=== PATIENT | male | born 1995 | race Caucasian/White ===

== ENCOUNTER 2017-11-04 08:29 | Emergency (ER) | payer BC ==
[2017-11-04] MEDS ORDERED: HYDROmorphone PF 2 MG/ML VIAL ONE (08:43)
[2017-11-04] MEDS ORDERED: IV NORMAL SALINE 1,000ML 1,000 ML IV SCH (08:45)
[2017-11-04] MEDS ORDERED: HYDROmorphone PF 2 MG/ML VIAL IV ONE ×2 (08:45→09:30)
[2017-11-04 09:11] LABS: BASO % 0 % (0-3); EOS # 0.1 x10^3/uL (0.0-0.7); EOS % 1 % (0-3); HEMATOCRIT 41.1 % (39.0-53.0); HEMOGLOBIN 14.5 g/dL (13.0-17.5); LYMPH # 2.1 x10^3/uL (1.0-4.8); LYMPH % 17 % (24-48); MEAN CORPUSCULAR HEMOGLOBIN 31 pg (25-35); MEAN CORPUSCULAR HGB CONC 35 g/dL (31-37); MEAN CORPUSCULAR VOLUME 88 fL (79-100); MONO # 0.4 x10^3/uL (0.0-1.1); MONO % 3 % (0-9); NEUT # 10.1 x10^3uL (1.8-7.7); NEUT % 80 % (31-73); PLATELET COUNT 286 x10^3/uL (140-400); RED BLOOD COUNT 4.68 x10^6/uL (4.30-5.70); RED CELL DISTRIBUTION WIDTH 13.5 % (11.5-14.5); WHITE BLOOD COUNT 12.7 x10^3/uL (4.0-11.0)
[2017-11-04 09:18] LABS: ALBUMIN 4.3 g/dL (3.4-5.0); ALBUMIN/GLOBULIN RATIO 1.4 (1.0-1.7); CALCIUM 9.2 mg/dL (8.5-10.1); GFR 94.3; POTASSIUM 3.7 mmol/L (3.5-5.1); TOTAL BILIRUBIN 0.7 mg/dL (0.2-1.0); TOTAL PROTEIN 7.4 g/dL (6.4-8.2)
[2017-11-04] MEDS ORDERED: ONDANSETRON PF 4 MG/2 ML VIAL. ONE (09:29)
[2017-11-04] MEDS ORDERED: ONDANSETRON PF 4 MG/2 ML VIAL. IV ONE (09:30)
--- NOTE | 2017-11-04 09:48 | PHYS DOC ---
Past History Past Medical History: Kidney Stones Past Surgical History: Tonsillectomy, Other Alcohol Use: Occasionally Drug Use: Marijuana Adult General Chief Complaint Chief Complaint: NAUSEA/VOMITING/DIARRHEA HPI HPI Patient is a 22 year old F who presents with abdominal pain associated with nausea/vomiting that started this morning. He states that the pain is constant with wave like fluctuating intensity. His pain is sharp in the right upper quadrant. He feels that this is similar to previous episodes of gallstones. He had his gallbladder removed 2 weeks ago. He was seen by his surgeon yesterday and was cleared for no further follow-ups as related to his gallbladder surgery. He does have a history of kidney stones. He states that his kidney stone pain is usually in his back and not the front and therefore he feels this pain is different. He denies any other associated problems and any other exacerbating or alleviating factors. Review of Systems Review of Systems Constitutional: Denies fever or chills [] Eyes: Denies change in visual acuity, redness, or eye pain [] HENT: Denies nasal congestion or sore throat [] Respiratory: Denies cough or shortness of breath [] Cardiovascular: No additional information not addressed in HPI [] GI: Negative except history of present illness : Denies dysuria or hematuria [] Musculoskeletal: Denies back pain or joint pain [] Integument: Denies rash or skin lesions [] Neurologic: Denies headache, focal weakness or sensory changes [] Endocrine: Denies polyuria or polydipsia [] All other systems were reviewed and found to be within normal limits, except as documented in this note. Family History Family History No pertinent family medical history was reported Current Medications Current Medications Current Medications Medications (Trade) Dose Ordered Sig/Ha Start Time Stop Time Status Last Admin Dose Admin Hydromorphone HCl (Dilaudid) 0.5 mg 1X ONCE 11/04/17 09:30 11/04/17 09:31 DC 11/04/17 09:24 0.5 MG Ondansetron HCl (Zofran) 4 mg 1X ONCE 11/04/17 09:30 11/04/17 09:34 DC 11/04/17 09:30 4 MG Sodium Chloride 1,000 ml @ 1,000 mls/hr Q1H 11/04/17 08:45 11/04/17 09:44 DC 11/04/17 08:45 1,000 MLS/HR Allergies Allergies Allergies Coded Allergies Type Severity Reaction Last Updated Verified No Known Drug Allergies 11/04/17 No Physical Exam Physical Exam Constitutional: Well developed, well nourished, no acute distress, non-toxic appearance. [] HENT: Normocephalic, atraumatic, Eyes: EOMI, conjunctiva normal, no discharge. [] Neck: Normal range of motion, no tenderness, supple, no stridor. [] Cardiovascular:Heart rate regular rhythm, Lungs & Thorax: Bilateral breath sounds clear to auscultation [] Abdomen: Bowel sounds normal, soft, no masses, no pulsatile masses. [] Mild to moderate tenderness in the right upper quadrant Skin: Warm, dry, no erythema, no rash. [] Extremities: No tenderness, no cyanosis, no clubbing, ROM intact, no edema. [] Neurologic: Alert and oriented X 3, normal motor function, normal sensory function, no focal deficits noted. [] Psychologic: Affect normal, judgement normal, mood normal. [] Current Patient Data Vital Signs Vital Signs Date Time Temp Pulse Resp B/P (MAP) Pulse Ox O2 Delivery O2 Flow Rate FiO2 11/04/17 09:39 16 99 Room Air 11/04/17 08:30 97.6 88 Lab Results Laboratory Tests Test 11/04/17 08:49 White Blood Count 12.7 x10^3/uL (4.0-11.0) H Red Blood Count 4.68 x10^6/uL (4.30-5.70) Hemoglobin 14.5 g/dL (13.0-17.5) Hematocrit 41.1 % (39.0-53.0) Mean Corpuscular Volume 88 fL (79-100) Mean Corpuscular Hemoglobin 31 pg (25-35) Mean Corpuscular Hemoglobin Concent 35 g/dL (31-37) Red Cell Distribution Width 13.5 % (11.5-14.5) Platelet Count 286 x10^3/uL (140-400) Neutrophils (%) (Auto) 80 % (31-73) H Lymphocytes (%) (Auto) 17 % (24-48) L Monocytes (%) (Auto) 3 % (0-9) Eosinophils (%) (Auto) 1 % (0-3) Basophils (%) (Auto) 0 % (0-3) Neutrophils # (Auto) 10.1 x10^3uL (1.8-7.7) H Lymphocytes # (Auto) 2.1 x10^3/uL (1.0-4.8) Monocytes # (Auto) 0.4 x10^3/uL (0.0-1.1) Eosinophils # (Auto) 0.1 x10^3/uL (0.0-0.7) Basophils # (Auto) 0.0 x10^3/uL (0.0-0.2) Sodium Level 143 mmol/L (136-145) Potassium Level 3.7 mmol/L (3.5-5.1) Chloride Level 105 mmol/L (98-107) Carbon Dioxide Level 29 mmol/L (21-32) Anion Gap 9 (6-14) Blood Urea Nitrogen 10 mg/dL (8-26) Creatinine 1.0 mg/dL (0.7-1.3) Estimated GFR (Cockcroft-Gault) 94.3 BUN/Creatinine Ratio 10 (6-20) Glucose Level 122 mg/dL (70-99) H Calcium Level 9.2 mg/dL (8.5-10.1) Total Bilirubin 0.7 mg/dL (0.2-1.0) Aspartate Amino Transferase (AST) 50 U/L (15-37) H Alanine Aminotransferase (ALT) 43 U/L (16-63) Alkaline Phosphatase 82 U/L (46-116) Total Protein 7.4 g/dL (6.4-8.2) Albumin 4.3 g/dL (3.4-5.0) Albumin/Globulin Ratio 1.4 (1.0-1.7) Lipase 266 U/L (73-393) EKG EKG [] Radiology/Procedures Radiology/Procedures CT abdomen and pelvis without contrast Impressions: Indication: Right upper quadrant pain. Cholecystectomy 2 weeks ago. Nausea. Possibly renal stones. Technique: CT abdomen and pelvis without IV contrast with multiplanar reformats. Comparison: None Findings: Limited study due to lack of IV contrast. Heart is normal in size. No pericardial or pleural effusion. Clear lung bases. Noncontrast appearance of the liver, spleen, pancreas, adrenals is within normal limits. Status post cholecystectomy. 1.4 x 2.2 cm low attenuating collection seen in the gallbladder fossa. Punctate nonobstructing right renal stone. No hydronephrosis. Normal appendix. No bowel obstruction. No retroperitoneal, pelvic or inguinal adenopathy. Shotty right lower quadrant lymph nodes noted. No right lower quadrant inflammatory changes. Bladder show no radiopaque stones. Prostate and seminal vesicles show no mass lesion. No suspicious bony lesion. Impression: Limited study due to lack of IV contrast. 1. Status post cholecystectomy with small loculated fluid in the gallbladder fossa likely postsurgical seroma. 2. Nonobstructing punctate right renal stone without imaging evidence of obstructive uropathy. Course & Med Decision Making Course & Med Decision Making Pertinent Labs and Imaging studies reviewed. (See chart for details) His symptoms were managed in the ED with IV fluids and medication. He was able to tolerate oral fluids prior to discharge. Dragon Disclaimer Dragon Disclaimer This electronic medical record was generated, in whole or in part, using a voice recognition dictation system. Departure Departure: Impression: Primary Impression: Constipation Disposition: HOME, SELF-CARE Condition: STABLE Referrals: NON,STAFF (PCP) Patient Instructions: Constipation, Adult Additional Instructions: Liborio was seen in the ED for abdominal pain. No emergency medical condition was was found on history or physical exam. He did have normal labs and imaging. Dr. Cade, his surgeon, was contacted by phone. His symptoms are most consistent with constipation. He was given IV fluids and medication in the emergency room. His symptoms were stabilized. He was discharged home with recommendations continue drinking plenty of fluids and using [id number] constipation medications as needed. He was advised to follow-up with his primary care doctor as needed for further management. Scripts Metoclopramide Hcl (REGLAN) 10 Mg Tablet 1 TAB PO TID for VOMITING for 3 Days, #9 TAB Prov: RADHA MARQUES MD 11/04/17 Problem Qualifiers Primary Impression: Constipation Constipation type: unspecified constipation type Qualified Codes: K59.00 - Constipation, unspecified RADHA MARQUES MD Nov 04, 2017 09:48
--- NOTE | 2017-11-04 10:21 | RAD ---
Indication: Right upper quadrant pain. Cholecystectomy 2 weeks ago. Nausea. Possibly renal stones. Technique: CT abdomen and pelvis without IV contrast with multiplanar reformats. Comparison: None Findings: Limited study due to lack of IV contrast. Heart is normal in size. No pericardial or pleural effusion. Clear lung bases. Noncontrast appearance of the liver, spleen, pancreas, adrenals is within normal limits. Status post cholecystectomy. 1.4 x 2.2 cm low attenuating collection seen in the gallbladder fossa. Punctate nonobstructing right renal stone. No hydronephrosis. Normal appendix. No bowel obstruction. No retroperitoneal, pelvic or inguinal adenopathy. Shotty right lower quadrant lymph nodes noted. No right lower quadrant inflammatory changes. Bladder show no radiopaque stones. Prostate and seminal vesicles show no mass lesion. No suspicious bony lesion. Impression: Limited study due to lack of IV contrast. 1. Status post cholecystectomy with small loculated fluid in the gallbladder fossa likely postsurgical seroma. 2. Nonobstructing punctate right renal stone without imaging evidence of obstructive uropathy. PQRS Compliance Statement: One or more of the following individualized dose reduction techniques were utilized for this examination: 1. Automated exposure control 2. Adjustment of the mA and/or kV according to patient size 3. Use of iterative reconstruction technique
[2017-11-04 11:00] LABS: BACTERIA,URINE 0 /HPF (0-FEW); BILIRUBIN,URINE NEG (NEG); CLARITY,URINE HAZY; COLOR,URINE AMBER; GLUCOSE,URINE NEG (NEG); NITRITE,URINE NEG (NEG); SQUAMOUS EPITHELIAL CELL,UR OCC /LPF; UROBILINOGEN,URINE 1 mg/dL (0.2 mg/dL); WBC,URINE RARE /HPF (0-4)
[2017-11-04 11:01] LABS: AMORPHOUS SEDIMENT,UR PRESENT /HPF
[2017-11-04] MEDS ORDERED: IV NORMAL SALINE 1,000ML 1,000 ML IV ONE (11:15)
[2017-11-04] MEDS ORDERED: MAGNESIUM CITRATE 296 ML SOLUTION. PO ONE (13:00)
[2017-11-04] MEDS ORDERED: MINERAL OIL 133 ML ENEMA. PR ONE (13:30)
[2017-11-04] MEDS ORDERED: ONDA4TAB10 SL (13:45)
[2017-11-04] MEDS ORDERED: METO10TA81 PO (13:46)
[2017-11-04 13:55] VITALS: BP 116/67
== END 2017-11-04 13:56 | disposition home or self-care (01) ==
LOC: ER 08:29
DX: K59.00 Constipation, unspecified (principal); R11.2 Nausea with vomiting, unspecified; F12.10 Cannabis abuse, uncomplicated; Z87.442 Personal history of urinary calculi
CPT/HCPCS: 36415; 74176; 80053; 81001; 83690; 85025; 96361; 96374; 96375; 96376; 99285; J1170; J2405; J7030